=== PATIENT | female | born 1935 | race Caucasian/White ===

== ENCOUNTER 2017-08-25 09:58 | Inpatient (IN) ==
[2017-08-24 17:51] LABS: Basophils # (Auto) 0 K/mcL (0.0-0.3); Basophils % (Auto) 0.5 % (0.0-2.0); Eosinophils # (Auto) 0.1 K/mcL (0.0-0.7); Eosinophils % (Auto) 1.3 % (0.0-7.0); Granulocytes % (Auto) 73.5 % (38.0-78.0); Lymphocytes # (Auto) 1.1 K/mcL (1.5-4.8); Lymphocytes % (Auto) 18.8 % (15.5-49.0); Mean Cell Volume 98.8 fL (80.0-100.0); Mean Corpuscular HGB Conc 33.7 g/dL (31.0-36.0); Mean Corpuscular Hemoglobin 33.3 pg (26.0-34.0); Monocytes # (Auto) 0.4 K/mcL (0.1-0.9); Monocytes % (Auto) 5.9 % (1.0-12.0); Platelet Count 197 K/mcL (140-440); RBC 4.09 M/mcL (4.00-5.20)
[2017-08-24 18:14] LABS: Blood Urea Nitrogen 15 mg/dl (8-23)
[~2017-08-25 09:58] MED LIST: PREGABALIN 75 MG CAPSULE PO SCH; ceFAZolin 1 GM VIAL IV SCH; oxyCODONE 10 MG TAB.ER.12H PO SCH
[2017-08-25 11:07] LABS: Appearance,Urine CLEAR; Bilirubin,Urine NEG (NEG); Color,Urine YELLOW; Glucose,Urine (UA) NEGATIVE (NEG); Leukocyte Esterase,Urine NEG /uL (NEG); Nitrate,Urine NEG (NEG); Protein,Urine NEG (NEG); Specific Gravity,Urine 1.011 (1.000-1.035); Urine Blood NEG mg/dL (<0.03); Urobilinogen,Urine NEG (NEG)
[2017-08-25] MEDS ORDERED: PROPOFOL 200 MG/20 ML VIAL IV ONE (13:30)
[2017-08-25] MEDS ORDERED: TRANEXAMIC ACID 1,000 MG/10 ML VIAL IV ONE (13:30)
[2017-08-25] MEDS ORDERED: LIDOCAINE HCL/PF 100 MG/5 ML SYRINGE IV ONE (13:30)
[2017-08-25] MEDS ORDERED: PHENYLEPHRINE 10 MG/ML VIAL IV ONE (13:30)
[2017-08-25] MEDS ORDERED: HETASTARCH 6% 500 ML BAG IV ONE (13:30)
[2017-08-25] MEDS ORDERED: SUCCINYLCHOLINE 20 MG/ML ML IV ONE (13:30)
[2017-08-25] MEDS ORDERED: ONDANSETRON 4 MG/2 ML VIAL IV ONE (13:30)
[2017-08-25] MEDS ORDERED: fentaNYL 100 MCG/2 ML VIAL IV ONE (13:30)
[2017-08-25] MEDS ORDERED: MIDAZOLAM 2 MG/2 ML VIAL IV ONE (13:30)
[2017-08-25] MEDS ORDERED: ePHEDrine 50 MG/ML AMPUL IV ONE (13:30)
[2017-08-25] MEDS ORDERED: DEXAMETHASONE 10 MG/ML VIAL IV ONE (13:30)
[2017-08-25] MEDS ORDERED: BUPIVACAINE W/EPI 0.5% 50 ML VIAL IJ ONE ×2 (15:22→18:03)
[2017-08-25] MEDS ORDERED: METOCLOPRAMIDE 10 MG/2 ML VIAL IV PRN (15:38)
[2017-08-25] MEDS ORDERED: HYDROmorphone 2 MG/ML SYRINGE IV PRN (15:38)
[2017-08-25] MEDS ORDERED: METHOCARBAMOL 1,000 MG/10 ML VIAL IV PRN (15:38)
[2017-08-25] MEDS ORDERED: diphenhydrAMINE 50 MG/ML VIAL IV PRN (15:38)
[2017-08-25] MEDS ORDERED: IPRATROPIUM/ALBUTEROL 3 ML AMPUL.NEB NEB PRN (15:38)
[2017-08-25] MEDS ORDERED: ePHEDrine 50 MG/ML AMPUL IV PRN (15:38)
[2017-08-25] MEDS ORDERED: ATROPINE SULFATE 0.4 MG/ML VIAL IV PRN (15:38)
[2017-08-25] MEDS ORDERED: METOPROLOL TARTRATE 5 MG/5 ML VIAL IV PRN (15:38)
[2017-08-25] MEDS ORDERED: ONDANSETRON 4 MG/2 ML VIAL IV PRN ×2 (15:38→16:20)
[2017-08-25] MEDS ORDERED: BENZOCAINE/MENTHOL 1 LOZENGE PO PRN ×2 (15:38→16:20)
[2017-08-25] MEDS ORDERED: fentaNYL 100 MCG/2 ML VIAL IV PRN (15:38)
[2017-08-25] MEDS ORDERED: FLUMAZENIL 0.1 MG/ML ML IV PRN (15:38)
[2017-08-25] MEDS ORDERED: NALOXONE HCL 0.4 MG/ML VIAL IV PRN (15:38)
[2017-08-25] MEDS ORDERED: LACTATED RINGERS 1,000 ML IV SCH (15:45)
[2017-08-25] MEDS ORDERED: TRANEXAMIC ACID 1,000 MG/10 ML VIAL IV SCH (16:20)
[2017-08-25] MEDS ORDERED: POLYETHYLENE GLYCOL 3350 17 GM PACKET PO PRN (16:20)
[2017-08-25] MEDS ORDERED: BISACODYL 10 MG SUPP.RECT PR PRN (16:20)
[2017-08-25] MEDS ORDERED: FLEETS ADULT ENEMA PR PRN (16:20)
[2017-08-25] MEDS ORDERED: MAGNESIUM HYDROXIDE 30 ML ORAL.SUSP PO PRN (16:20)
--- NOTE | 2017-08-25 16:20 | Brief Operative Note ---
Date of procedure: 08/25/17 Pre-op diagnosis: R shoulder severe RTC tear arthropathy Post-op diagnosis: same Procedure: R reverse total shoulder arthroplasty Grafts/Implants: Yes (Tournier ) Anesthesia: GETA Findings: severe osteoporosis, Complications: none Surgeon: Brandon Sargent Belt Maker Helper: Tyler Arevalo Estimated blood loss (cc): 150 Specimens Removed/Pathology: none sent Condition: stable Disposition: PACU
[2017-08-25] MEDS ORDERED: FUROSEMIDE 40 MG TABLET PO PRN (16:33)
[2017-08-25] MEDS ORDERED: PIMECROLIMUS 30 GM CREAM..G. TP PRN (16:33)
[2017-08-25] MEDS ORDERED: MOMETASONE 0.1% TOPICAL PRN (16:33)
[2017-08-25] MEDS ORDERED: FLUTICASONE PROPIONATE SPRAY.NAS NS PRN (16:33)
[2017-08-25] MEDS ORDERED: traMADol 50 MG TABLET PO PRN (16:33)
[2017-08-25] MEDS ORDERED: NYSTATIN POWDER BOTTLE 15GM TOPICAL PRN (16:33)
[2017-08-25] MEDS ORDERED: ACETAMINOPHEN 500 MG TABLET PO PRN (16:33)
[2017-08-25] MEDS: ACETAMINOPHEN 700 MG/70 ML BOTTLE IV SCH ×2 (17:03→22:04)
[2017-08-25] MEDS: 0.9 % SODIUM CHLORIDE 1,000 ML IV SCH (18:04)
--- NOTE | 2017-08-25 18:05 | XRay Report ---
CLINICAL INFORMATION: Postop total shoulder prostheses COMPARISON: 08/20/2016 preoperative films FINDINGS: Total shoulder prostheses is anatomically aligned. No osseous abnormalities. Soft tissue swelling seen as expected IMPRESSION: Negative Interpreted and Authenticated by: Hardy Oliver 08/25/17
--- NOTE | 2017-08-25 18:07 | XRay Report ---
CLINICAL INFORMATION: Hypoxia COMPARISON: 07/04/2016 and 04/25/2009 FINDINGS: The heart has increased in size and is now now moderately enlarged. Ectatic thoracic aorta is noted. Pulmonary vessels are mildly distended and there is moderate peribronchial vascular edema throughout both lungs which has progressed. Small infiltrate or atelectasis noted in both medial bases small bilateral pleural effusions noted IMPRESSION: 1. Moderate CHF 2. Mild bibasilar airspace disease, most likely atelectasis, but possible aspiration Interpreted and Authenticated by: Hardy Oliver 08/25/17
--- NOTE | 2017-08-25 18:35 | Internal Medicine Consult Note ---
Medical - CN: HPI - Data of Consult Consult date: 08/25/17 Requesting Physician: Brandon Sargent Primary Care Provider: Celina Dent DO Family Provider: Jose D Weller Jacques - Consult Narrative Reason for consult: Respiratory distress post-op History of present illness: Ms. Puga is a 81 year old F with a history of multiple medical problems including rheumatoid arthritis, right rotator cuff tear, hypertension, hyperlipidemia, hypothyroidism who is now postop after right total shoulder replacement. Dr. Sargent has consulted for evaluation of respiratory distress postoperatively. The PACU, the patient was initially tachypneic with respiratory rate in the 30s, requiring facemask. Subsequently her respiratory rate decreased and she became more comfortable. When I examine the patient, she is being transitioned to nasal cannula. She is somnolent after anesthesia, is able to answer a few questions. She denies any dyspnea. She denies any chest pain. She is complaining of shoulder pain in the right shoulder which was a site of her joint replacement. Intraoperatively, the patient did receive Hespan plus fluids, totaling 1500 mL. I do not see a diagnosis of congestive heart failure, though given her age and history of hypertension she would be at risk for some diastolic dysfunction. Do not see a history of pulmonary disease though her pectus deformity may hinder her respiratory mechanics, in addition to her underlying arthritis. By the end of her stay in recovery, she is saturating well on nasal cannula, breathing at a respiratory rate without use of accessory musculature and her respirations are unlabored. CC: Brandon Sargent ROS unobtainable: due to mental status (Still partially sedated from anesthesia) Medical - CN: PMH Medical history: Hypertension Hyperlipidemia Hypothyroidism Rheumatoid arthritis Restless leg syndrome Severe osteoporosis in the spine Migraines Breast cancer in 2006 TIA Gastroesophageal reflux History of UTIs. Surgical history: Breast surgery Hip fracture repair 2 in 2016 Status post hysterectomy Status post right total shoulder done today. Pertinent family history: Arthritis Social history: Patient has never smoked. She has occasional alcohol. Medical - CN: Meds Home Medications Medication Instructions Recorded Confirmed Type calcium carbonate 600 mg (1,500 1 tab PO QDAY 05/08/16 08/25/17 History mg)-vitamin D3 400 unit tablet cholecalciferol (vitamin D3) 5,000 5,000 unit PO DAILY tab 05/08/16 08/25/17 History unit tablet cranberry fruit concentrate 1 tab PO BID 05/08/16 08/25/17 History fluticasone 50 mcg/actuation nasal 2 spray INTRANASAL DAILYP PRN 05/08/16 History spray,suspension furosemide 40 mg tablet 40 mg PO DAILYP PRN 05/08/16 08/25/17 History garlic 1 tab PO QDAY 05/08/16 08/25/17 History mometasone 0.1 % topical cream 1 applic TOPICAL BIDP PRN g 05/08/16 08/25/17 History nystatin 100,000 unit/gram topical 1 applic TOPICAL BIDP PRN 05/08/16 08/25/17 History powder pimecrolimus 1 % topical cream 1 applic TOPICAL BIDP PRN 05/08/16 08/25/17 History Ascorbic Acid [Vitamin C] 1,000 mg PO DAILY 05/23/16 08/25/17 History Acetaminophen [Acetaminophen Extra 500 mg PO Q6H PRN 07/04/16 08/24/17 History Strength] Calcium Carbonate/Vitamin D3 1 each PO BID #60 tab.chew 07/07/16 08/24/17 Rx [Calcium 500+D Tablet Chew] aspirin 81 mg chewable tablet 81 mg PO QDAY 08/20/16 08/25/17 History famotidine 20 mg tablet 20 mg PO BID 01/27/17 08/25/17 History hydroxychloroquine 200 mg tablet 200 mg PO QDAY #30 tab 07/21/17 08/25/17 Rx temazepam 15 mg capsule 15 mg PO .COMPLEX #60 each 08/10/17 08/25/17 Rx tramadol 50 mg tablet 25 mg PO QID PRN #60 tab 08/19/17 08/25/17 Rx Allergies Allergy/AdvReac Type Severity Reaction Status Date / Time latex AdvReac Intermediate Rash Verified 08/24/17 16:19 Sulfa (Sulfonamide AdvReac Mild Rash Verified 08/24/17 16:19 Antibiotics) Medical - CN: Exam - Constitutional Vitals: Temp Pulse Resp BP Pulse Ox 97.3 F 84 13 135/54 99 08/25/17 17:07 08/25/17 17:07 08/25/17 17:07 08/25/17 17:07 08/25/17 17:07 Exam: Frail appearing, somnolent, laying in a PACU bed. - Head Head exam: Present: atraumatic, normal inspection - Eye Eye exam: Present: normal appearance, PERRL. Absent: conjunctival injection - ENT ENT exam: Present: mucous membranes dry - Neck Neck exam: Present: normal inspection. Absent: tenderness, thyromegaly - Respiratory Additional comments: Diminished breath sounds at the right face with a few rales. - Cardiovascular Cardiovascular exam: Present: normal rate and rhythm. Absent: diastolic murmur , systolic murmur - Expanded Cardiovascular Exam Peripheral pulses: 2+: carotid (L), carotid (R) - GI/Abdominal GI/Abdominal exam: Present: soft, tenderness. Absent: distended, guarding - Extremities Exam Extremities exam: Present: normal capillary refill. Absent: pedal edema Additional comments: Right shoulder in surgical dressing - Neurological Exam Additional comments: Patient is somnolent after anesthesia, arouses and answers a few questions. Cranial nerves II through XII appear intact as best can be tested. Sensation appears intact to touch. - Skin Additional comments: Skin with decreased turgor, thin. - Additional findings Additional findings: Chest exam with pectus carinatum, status post right mastectomy Medical - CN: Result - Labs CBC & Chem 7: 08/24/17 16:55 08/24/17 16:55 Labs: Urine 08/25/17 Range/Units 10:19 Urine Color Yellow Urine Appearance Clear Urine pH 7.0 (5.0-9.0) Ur Specific [place] 1.011 (1.000-1.035) Urine Protein Neg (NEG) mg/dL Urine Glucose (UA) Negative (NEG) mg/dL - EKG Data Prior EKG available for review: no EKG comments: 08/25/17 18:45 Normal sinus rhythm at a rate of 82 with VPCs - Imaging and Cardiology Chest x-ray Status: image reviewed by me Additional comments: IMPRESSION: 1. Moderate CHF 2. Mild bibasilar airspace disease, most likely atelectasis, but possible aspiration Medical - CN: A/P (1) Respiratory distress following surgery Problem details: Possibly related to pain, volume received in surgery; resolving at time of leaving PACU Status: Acute (2) Rotator cuff tear Problem details: s/p right total shoulder Status: Resolved (3) Rheumatoid arthritis Status: Chronic - Narrative A/P Narrative: 81-year-old female with rheumatoid arthritis, osteoporosis, pectus deformity, was having respiratory distress postoperatively in the PACU. Respiratory distress. 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 Generally resolved by the time she is leaving the PACU. Would likely benefit from some gentle diuresis over the next 1-2 days given the findings on her chest radiograph. No history of congestive heart failure, though certainly would be at risk with her age and history of hypertension (though I do not see any antihypertensives on her current med list). Recommendation: -Continue supplemental oxygen -Pulmonary toilet postoperative -We'll commence furosemide in the morning -I do not think an echo would provide extra information at this point -Will continue to follow Gastroesophageal reflux disease. On famotidine at home Recommendation: Continue famotidine for GERD and GI prophylaxis
[2017-08-25] MEDS ORDERED: CRANBERRY EXTRACT PO SCH (21:00)
[2017-08-25] MEDS: ceFAZolin 1 GM VIAL IV SCH (21:01)
[2017-08-25] MEDS: CALCIUM W/VIT D3 500 MG TABLET PO SCH (21:02)
[2017-08-25] MEDS: SENNOSIDES 1 TABLET PO SCH (21:02)
[2017-08-25] MEDS: DOCUSATE SODIUM 100 MG CAPSULE PO SCH (21:02)
[2017-08-25] MEDS: FAMOTIDINE 20 MG TABLET PO SCH (21:02)
[2017-08-25] MEDS: 0.9 % SODIUM CHLORIDE 10 ML SYRINGE IV SCH (21:03)
[2017-08-26] MEDS: HYDROcodone/APAP 5/325MG TABLET PO PRN ×4 (00:48→19:46)
[2017-08-26] MEDS: ACETAMINOPHEN 700 MG/70 ML BOTTLE IV SCH ×2 (03:48→16:10)
[2017-08-26] MEDS: ceFAZolin 1 GM VIAL IV SCH (04:23)
[2017-08-26] MEDS: 0.9 % SODIUM CHLORIDE 10 ML SYRINGE IV SCH ×3 (06:32→21:06)
--- NOTE | 2017-08-26 07:42 | Orthopedic Progress Note ---
Orthopedics - Auxillary Note - Subjective Patient Information: Note initiated : 08/26/17 at 7:40 am Service Date, if different from initiated Date: [] Patient: Haley Puga 81 y/o F admitted on 08/25/17 for Right Reverse Total Shoulder Arthroplasty. Chief Complaint: mild to moderate pain nvi-distal bandages c/d/i Vital Signs Temp Pulse Resp BP Pulse Ox 08/26/17 04:00 98.0 F 101 H 18 107/57 97 08/26/17 00:00 97.9 F 100 H 20 111/66 97 08/25/17 20:45 97 08/25/17 20:00 101 H 16 114/65 97 08/25/17 19:36 96 H 123/70 98 08/25/17 19:25 98 08/25/17 19:06 90 127/70 100 08/25/17 18:36 91 H 132/73 98 08/25/17 18:21 89 129/72 99 08/25/17 18:06 87 132/72 98 08/25/17 17:51 90 128/68 93 08/25/17 17:07 97.3 F 84 13 135/54 99 08/25/17 16:52 97.3 F 84 13 123/46 99 08/25/17 16:37 96.8 F L 99 H 13 107/89 99 08/25/17 12:00 98.0 F 16 125/72 97 Intake and Output 08/25/17 08/26/17 08/26/17 21:59 05:59 13:59 Intake Total 1570 / 1570 370 / 370 Output Total 775 / 775 616 / 616 Balance 795 / 795 -246 / -246 Intake: IV 70 / 70 70 / 70 Oral 300 / 300 Other 1500 / 1500 Output: Drainage 75 / 75 91 / 91 Right Shoulder 75 / 75 91 / 91 Urine Catheter Amount 400 / 400 Void Amount 300 / 300 525 / 525 Other: Weight 109 lb Laboratory Results - last 24 hr 08/25/17 08/26/17 10:19 04:22 Hgb 10.8 L Hct 31.7 L Urine Color Yellow Urine Appearance Clear Urine pH 7.0 Ur Specific [place] 1.011 Urine Protein Neg Urine Glucose (UA) Negative Urine Ketones Neg Urine Occult Blood Neg Urine Nitrate Neg Urine Bilirubin Neg Urine Urobilinogen Neg Ur Leukocyte Esterase Neg Ur Culture Indicated? No s/p R reverse total shoulder arthroplasty-stable mobilize with PT possible SNF placement in 2-3 days
[2017-08-26] MEDS: 0.9 % SODIUM CHLORIDE 1,000 ML IV SCH ×2 (08:03→19:46)
[2017-08-26] MEDS ORDERED: GARLIC PO SCH (09:00)
--- NOTE | 2017-08-26 09:20 | Operative Note ---
DATE OF OPERATION: 08/25/2017 PREOPERATIVE DIAGNOSIS: Severe right shoulder rotator cuff tear arthropathy with severe osteoporosis. POSTOPERATIVE DIAGNOSIS: Severe right shoulder rotator cuff tear arthropathy with severe osteoporosis. PROCEDURE PERFORMED: Right reverse total shoulder arthroplasty using a Tornier size 1 humeral stem with a 36 glenosphere and a standard concentric base tray with polyethylene insert. SURGEON: Brandon Sargent M.D. JUVENILE JUSTICE OFFICER: Warren Arevalo PA-C. ANESTHESIA: General. DRAINS: None. SPECIMENS: None. COMPLICATIONS: None. POSTOPERATIVE CONDITION: Stable. INDICATIONS FOR SURGERY: This is an 81-year-old female who has had severe longstanding shoulder pain and limited motion. Radiographs showed severe rotator cuff tear arthropathy with superior medial escape of the humeral head as well as severe osteoporosis. FINDINGS AT SURGERY: As above. Post implantation showed what appeared to be a reasonably stable total shoulder. PROCEDURE IN DETAIL: The patient had been seen preoperatively. Informed consent had been obtained after discussion of risks and benefits of surgery. Risks including, but not limited to, bleeding, possibly requiring transfusion; infection, possibly requiring implant removal and prolonged IV antibiotics; injury to nerves, blood vessels, and other surrounding structures; anesthetic risks; incomplete or no resolution of symptoms; possible worsening of symptoms; fracture; dislocation; and possibility of needing further revision surgery. She understood these risks and wished to proceed. The correct operative site was marked in preoperative holding, and the patient was taken to the operating room and general anesthesia induced. She was carefully positioned in the beach chair position and pressure points carefully padded. The right shoulder and upper extremity were then carefully prepped and draped in normal sterile fashion, and a time-out was performed verifying patient name, operative site, and plan. Ioban was used to cover all skin surfaces and then a standard deltopectoral incision was made with a scalpel through skin and subcutaneous tissue. Careful blunt dissection was taken down to try and identify cephalic vein. Her muscles were very thin and cephalic vein was difficult to even identify. We carefully bluntly dissected as best we could in the deltopectoral interval and then identified the humerus. This was then released and dislocated. The humeral head was severely deteriorated. We went ahead and cut the humeral head using the cutting guide from Ange, and as expected her osteoporosis was extreme. Her humeral marrow contents were easily just suctioned out with a suction. We trialled gently with the stem trials and then placed a cut protector. We then proceeded to expose the glenoid. She had eroded severely to the point where she was down to the coracoid. Based off our preoperative CT, we knew the real glenoid vault was inferior, so we carefully released capsule to allow us to sublux the humerus posteriorly. We then used a drill guide to place a guide pin and then started to ream. The first position was centered, and this eroded through the bone anteriorly so we moved this posteriorly and angled a little bit more posterior as well and were able to get what we felt was some cortical purchase. We just barely touched the glenoid with the reamer. Again, due to the severe osteoporosis and limited bone available. We then drilled for the central peg and then opened a baseplate with a central screw. She measured a 25. I believe we went with a 39.5 screw just to try and make sure we got some cortical fixation to pull the base plate down. We did pull the base plate down with a screw. However, again the screw purchase was somewhat limited, so we went ahead and then drilled our superior and inferior locking screws. Since there was angle available in those screws, we angled these posteriorly, and we were actually able to get into the spine of the scapula and get some good cortical purchase. We got two excellent locking screws, superior and inferior, and then anteriorly there was no bone, so posteriorly we did place a short nonlocking screw. We then initially decided to use a +3 offset to try and get her lateralized back out to a more normal position, so we went ahead and placed the glenosphere after carefully reaming around the edges to allow full seating. We then went back to the humerus and placed a standard trial with a small offset. We tried to reduce the shoulder and there was no way it was going to reduce, so we downsized the stem and cut more off the humerus. We reattempted reduction and still could not get it. We downsized again, eventually downsized to a size 1 and had cut essentially all of the proximal humerus and were into humeral shaft and still struggled with reduction. I eventually ended up removing the +3 offset glenosphere and placed a standard offset glenosphere, and we were able to finally get reduction, so we went ahead and removed the trial 36 glenosphere with no offset and opened that and then implanted that. We then went to the humerus and opened a size 1 humeral stem. Cement restrictor was placed down the canal and cement was mixed. We brushed and cleaned the canal. We did irrigate with Irrisept, after a minute pulse lavaged copiously, and then cemented. Prior to cementing, we did note there was a crack in the humerus so we did place a cerclage cable under gentle tension to keep this from distracting with cement insertion. We did pressurize the cement and then placed the stem in approximately 20 degrees of retroversion. There was cement that had extruded out the lateral crack which we removed. Once cement had fully hardened, we placed our non-offset baseplate with the smallest standard poly. The shoulder was able to be reduced. The range of motion was somewhat limited just to the tension. We did irrigate with Irrisept. After waiting a minute, we pulse lavaged. She had very thin tissue to close, so we placed a drain out posteriorly, an 1/8-inch. We then used a looped Maxon to run our deltopectoral muscle layer and then 2-0 Monocryl for subcutaneous and kannan for skin. Xeroform and a sterile dressing were applied. The drain was hooked to Constavac suction and then an abductor immobilizer was placed. The patient was awakened, extubated, and transferred to recovery in stable condition. HARMAN:bing Job ID: [id number] Doc ID: [id number] Brandon Sargent MD
[2017-08-26] MEDS ORDERED: FLU VACC QS2017-18 36MOS UP/PF 60 MCG/0.5 ML SYRINGE IM ONE (10:00)
[2017-08-26] MEDS: DOCUSATE SODIUM 100 MG CAPSULE PO SCH ×2 (10:34→21:05)
[2017-08-26] MEDS: CALCIUM W/VIT D3 500 MG TABLET PO SCH ×2 (12:36→21:05)
[2017-08-26] MEDS: FAMOTIDINE 20 MG TABLET PO SCH ×2 (12:37→21:05)
[2017-08-26] MEDS: ASCORBIC ACID 500 MG TABLET PO SCH (12:39)
[2017-08-26] MEDS: HYDROXYCHLOROQUINE 200 MG TABLET PO SCH (12:39)
[2017-08-26] MEDS: VITAMIN D3 5,000 UNIT CAPSULE PO SCH (12:40)
[2017-08-26] MEDS: ASPIRIN 81 MG TAB.CHEW PO SCH (13:17)
--- NOTE | 2017-08-26 13:58 | Internal Med Progress Note ---
Medical - PN: Subj Patient information: Note initiated : 08/26/17 at 1:55 pm Service Date, if different from initiated Date: [] Patient: Haley Puga 81 y/o F admitted on 08/25/17 for Right Reverse Total Shoulder Arthroplasty. Chief Complaint: f/u dyspnea Interval history: August 26: Feels better this morning. Was weaned off of oxygen overnight and earlier this morning. Has been up diuresing several times. Now complaining of some nausea, she thinks it may be related to pain in her shoulder as well as pain medications. Did have some emesis after trying to have breakfast. Does not recall me from my evaluation of her in the PACU yesterday. - Constitutional Vitals: Vital Signs Temp Pulse Resp BP Pulse Ox 98.2 F 97 H 16 130/67 92 08/26/17 13:16 08/26/17 13:16 08/26/17 13:16 08/26/17 13:16 08/26/17 13:16 Period Temp Pulse Resp BP Sys/Jacobson Pulse Ox Last 24 Hr 96.8 F-98.2 F 84-101 13-20 107-135/46-89 92-100 Intake and Output 08/25/17 08/26/17 08/26/17 21:59 05:59 13:59 Intake Total 1570 / 1570 370 / 370 600 / 600 Output Total 775 / 775 616 / 616 100 / 100 Balance 795 / 795 -246 / -246 500 / 500 Weight 109 lb Intake & Output: Intake & Output 08/25/17 08/26/17 08/26/17 21:59 05:59 13:59 Intake Total 1570 / 1570 370 / 370 600 / 600 Output Total 775 / 775 616 / 616 100 / 100 Balance 795 / 795 -246 / -246 500 / 500 Weight 109 lb Intake: IV 70 / 70 70 / 70 Oral 300 / 300 600 / 600 Other 1500 / 1500 Output: Drainage 75 / 75 91 / 91 100 / 100 Right Shoulder 75 / 75 91 / 91 100 / 100 Urine Catheter Amount 400 / 400 Void Amount 300 / 300 525 / 525 Other: Meal Lunch Percent of Meal Consumed 100% Feeding Ability Assist with Tray Set Up # [place] 1 - Additional findings Additional findings: General: Sitting up in bed in no distress Chest: Kyphosis and pectus deformity remaining. Lung sounds are now clear under the right base, no longer diminished and no rales. Left lung is clear. Cardiovascular: Regular, no peripheral edema Abdomen: Soft, nontender Neuro: Alert, oriented 3 speech is normal, mood and affect normal. Medical - PN: Obj Da - Labs CBC & Chem 7: 08/26/17 04:22 08/24/17 16:55 Labs: Abnormal Lab Results 08/26/17 08/24/17 04:22 16:55 Hgb 10.8 L Hct 31.7 L Lymph # (Auto) 1.1 L Meds: Medications Acetaminophen (Tylenol) 500 mg PO Q6HP PRN PRN Reason: Pain Hydrocodone Bitart/Acetaminophen ([place] 5/325mg) 0 tab PO Q4HP PRN PRN Reason: Pain Last Admin: 08/26/17 10:34 Dose: 1 tab Ascorbic Acid (Vitamin C) 1,000 mg PO DAILY [facility] Last Admin: 08/26/17 12:39 Dose: 1,000 mg Aspirin (Aspirin) 81 mg PO QDAY [facility] Last Admin: 08/26/17 13:17 Dose: 81 mg Bisacodyl (Dulcolax) 10 mg [place] Q2-3DAYS PRN PRN Reason: Constipation Calcium/Vitamin D (Calcium W/Vit D3) 500 mg PO BID [facility] Last Admin: 08/26/17 12:36 Dose: 500 mg Docusate Sodium (Colace) 100 mg PO BID [facility] Last Admin: 08/26/17 10:34 Dose: 100 mg Famotidine (Pepcid) 20 mg PO BID [facility] Last Admin: 08/26/17 12:37 Dose: 20 mg Fluticasone Propionate (Flonase) 2 spray NS DAILYP PRN PRN Reason: ALLERGIES Furosemide (Lasix) 0 mg PO DAILYP PRN PRN Reason: Edema Hydroxychloroquine Sulfate (Plaquenil) 200 mg PO QDAY [facility] Last Admin: 08/26/17 12:39 Dose: 200 mg Sodium Chloride (Sodium Chloride 0.9%) 1,000 mls @ 75 mls/hr IV .[id number] [facility] Last Admin: 08/26/17 08:03 Dose: Not Given Magnesium Hydroxide (Milk Of Magnesia) 30 ml PO BIDP PRN PRN Reason: Constipation Morphine Sulfate (Morphine) 0 mg IV Q1HP PRN PRN Reason: Pain Nystatin (Kenalog) 1 dose TOPICAL BIDP PRN PRN Reason: INFECTION Ondansetron HCl (Zofran) 4 mg IV Q4HP PRN PRN Reason: Nausea And Vomiting Last Admin: 08/26/17 08:46 Dose: 4 mg Mometasone 0.1% (Topical Cream) 1 dose TOPICAL BIDP PRN PRN Reason: INFECTION Pimecrolimus (Elidel) 1 gm TP BIDP PRN PRN Reason: INFECTION Polyethylene Glycol (Miralax) 17 gm PO DAILYP PRN PRN Reason: Constipation Senna (Senokot) 2 tab PO HS [facility] Last Admin: 08/25/17 21:02 Dose: 2 tab Sodium Biphosphate/Sodium Phosphate (Fleets Adult) 1 dose [place] Q3-4DAYS PRN PRN Reason: Constipation Sodium Chloride (Saline Flush) 10 ml IV Q8 [facility] Last Admin: 08/26/17 06:32 Dose: Not Given Temazepam (Restoril) 0 mg PO HSP PRN PRN Reason: Insomnia Throat Lozenges (Cepacol) 1 lozenge PO PRN PRN PRN Reason: Sore Throat Tramadol HCl (Ultram) 25 mg PO QIDP PRN PRN Reason: Pain Vitamin D (Vitamin D3) 5,000 unit PO DAILY [facility] Last Admin: 08/26/17 12:40 Dose: 5,000 unit Medical - PN: A/P (1) Respiratory distress following surgery Problem details: Possibly related to pain, volume received in surgery; resolving at time of leaving PACU Status: Resolved Current Visit: Yes (2) Rotator cuff tear Problem details: s/p right total shoulder Status: Resolved Current Visit: Yes (3) Rheumatoid arthritis Status: Chronic Current Visit: No - Narrative A/P Narrative: 81-year-old female with rheumatoid arthritis, osteoporosis, pectus deformity, was having respiratory distress postoperatively in the PACU. Respiratory distress. Resolved. Saturating well on room air, no dyspnea currently. Suspect multifactorial, including volume overload and mechanical issues with chest wall combined with sedation. Has been diuresing this morning , lung exam is improved. Recommendation: Continue with pulmonary toilet, based on repeat exam will not give diuretic at this time. Gastroesophageal reflux disease. On famotidine at home Recommendation: Continue famotidine History of hypertension. Not currently on antihypertensives. History of hypothyroidism, on [id number] supplement, apparently normal TSH at last check. Medical - PN: Qual - VTE Deep Vein Thrombosis/Pulmonary Embolism Present on Admission: No
[2017-08-26] MEDS: TEMAZEPAM 15 MG CAPSULE PO PRN (21:05)
[2017-08-26] MEDS: SENNOSIDES 1 TABLET PO SCH (21:05)
[2017-08-27] MEDS: HYDROcodone/APAP 5/325MG TABLET PO PRN ×5 (00:02→21:08)
[2017-08-27] MEDS: 0.9 % SODIUM CHLORIDE 10 ML SYRINGE IV SCH ×3 (05:28→23:56)
--- NOTE | 2017-08-27 07:44 | Orthopedic Progress Note ---
Orthopedics - Auxillary Note - Subjective Patient Information: Note initiated : 08/27/17 at 7:42 am Service Date, if different from initiated Date: [] Patient: Haley Puga 81 y/o F admitted on 08/25/17 for Right Reverse Total Shoulder Arthroplasty. Chief Complaint: pain is improving. bandages c/d/i nvi-distal Vital Signs Temp Pulse Pulse Pulse Resp BP Pulse Ox 08/27/17 07:05 98.5 F 20 129/64 92 08/27/17 03:33 98.8 F 91 H 20 119/60 92 08/27/17 00:00 97.6 F 98 H 18 124/60 93 08/26/17 20:00 98.1 F 91 H 16 115/53 93 08/26/17 16:18 98.8 F 86 17 115/65 89 L 08/26/17 13:16 98.2 F 97 H 16 130/67 92 08/26/17 09:00 97.8 F 85 14 114/64 94 08/26/17 08:00 101 H 85 14 Intake and Output 08/26/17 08/27/17 08/27/17 21:59 05:59 13:59 Intake Total 650 / 650 Output Total 130 / 130 665 / 665 Balance -130 / -130 -15 / -15 Intake: Oral 650 / 650 Output: Drainage 130 / 130 40 / 40 Right Shoulder 130 / 130 40 / 40 Void Amount 625 / 625 Other: Meal Yogurt Percent of Meal Consumed 100% Feeding Ability Independent # Voids 1 Weight 111 lb 8 oz Laboratory Results - last 24 hr 08/27/17 04:20 Hgb 9.7 L Hct 29.1 L s/p R Reverse total shoulder arthroplasty-stable mobilize with PT tentative discharge to SNF tomorrow for rehab given that she will need to remain non-weight bearing on her R (dominant) arm and has no help at home.
[2017-08-27] MEDS: 0.9 % SODIUM CHLORIDE 1,000 ML IV SCH ×2 (08:23→23:56)
[2017-08-27] MEDS: FAMOTIDINE 20 MG TABLET PO SCH ×2 (08:23→20:13)
[2017-08-27] MEDS: VITAMIN D3 5,000 UNIT CAPSULE PO SCH (08:23)
[2017-08-27] MEDS: ASPIRIN 81 MG TAB.CHEW PO SCH (08:23)
[2017-08-27] MEDS: DOCUSATE SODIUM 100 MG CAPSULE PO SCH ×2 (08:23→20:13)
[2017-08-27] MEDS: CALCIUM W/VIT D3 500 MG TABLET PO SCH ×2 (08:23→20:13)
[2017-08-27] MEDS: HYDROXYCHLOROQUINE 200 MG TABLET PO SCH (08:23)
[2017-08-27] MEDS: ASCORBIC ACID 500 MG TABLET PO SCH (08:29)
--- NOTE | 2017-08-27 09:57 | Internal Med Progress Note ---
Medical - PN: Subj Patient information: Note initiated : 08/27/17 at 9:54 am Service Date, if different from initiated Date: [] Patient: Haley Puga 81 y/o F admitted on 08/25/17 for Right Reverse Total Shoulder Arthroplasty. Chief Complaint: f/u respiratory distress Interval history: August 26: Feels better this morning. Was weaned off of oxygen overnight and earlier this morning. Has been up diuresing several times. Now complaining of some nausea, she thinks it may be related to pain in her shoulder as well as pain medications. Did have some emesis after trying to have breakfast. Does not recall me from my evaluation of her in the PACU yesterday. August 27: Continues to improve, nausea resolved, taking good PO. No dyspnea or chest pain. Remains off O2 - Constitutional Vitals: Vital Signs Temp Pulse Resp BP Pulse Ox 98.5 F 91 H 20 129/64 92 08/27/17 07:05 08/27/17 03:33 08/27/17 07:05 08/27/17 07:05 08/27/17 07:05 Period Temp Pulse Resp BP Sys/Jacobson Pulse Ox Last 24 Hr 97.6 F-98.8 F 86-98 16-20 115-130/53-67 89-93 Intake and Output 08/26/17 08/27/17 08/27/17 21:59 05:59 13:59 Intake Total 650 / 650 200 / 200 Output Total 130 / 130 665 / 665 550 / 550 Balance -130 / -130 -15 / -15 -350 / -350 Weight 111 lb 8 oz Intake & Output: Intake & Output 08/26/17 08/27/17 08/27/17 21:59 05:59 13:59 Intake Total 650 / 650 200 / 200 Output Total 130 / 130 665 / 665 550 / 550 Balance -130 / -130 -15 / -15 -350 / -350 Weight 111 lb 8 oz Intake: Oral 650 / 650 200 / 200 Output: Drainage 130 / 130 40 / 40 Right Shoulder 130 / 130 40 / 40 Void Amount 625 / 625 550 / 550 Other: Meal Yogurt Breakfast Percent of Meal Consumed 100% 50% Feeding Ability Independent Independent # Voids 1 1 General appearance: no acute distress - Respiratory Respiratory exam: Present: normal respiratory exam, CTAB. Absent: respiratory distress, rhonchi, wheezes - Cardiovascular Cardiovascular exam: Present: normal rate and rhythm - GI/Abdominal GI/Abdominal exam: Present: normal bowel sounds, soft - Extremities Exam Extremities exam: Absent: pedal edema - Neurological Exam Neurological exam: Present: alert, oriented X3 Medical - PN: Obj Da - Labs CBC & Chem 7: 08/27/17 04:20 08/24/17 16:55 Labs: Abnormal Lab Results 08/27/17 08/26/17 08/24/17 04:20 04:22 16:55 Hgb 9.7 L 10.8 L Hct 29.1 L 31.7 L Lymph # (Auto) 1.1 L Meds: Medications Acetaminophen (Tylenol) 500 mg PO Q6HP PRN PRN Reason: Pain Hydrocodone Bitart/Acetaminophen ([place] 5/325mg) 0 tab PO Q4HP PRN PRN Reason: Pain Last Admin: 08/27/17 08:29 Dose: 1 tab Ascorbic Acid (Vitamin C) 1,[address] [facility] Last Admin: 08/27/17 08:29 Dose: 1,000 mg Aspirin (Aspirin) [address] [facility] Last Admin: 08/27/17 08:23 Dose: 81 mg Bisacodyl (Dulcolax) 10 mg IA Q2-3DAYS PRN PRN Reason: Constipation Calcium/Vitamin D (Calcium W/Vit D3) [address] [facility] Last Admin: 08/27/17 08:23 Dose: 500 mg Docusate Sodium (Colace) [address] [facility] Last Admin: 08/27/17 08:23 Dose: 100 mg Famotidine (Pepcid) [address] [facility] Last Admin: 08/27/17 08:23 Dose: 20 mg Fluticasone Propionate (Flonase) 2 spray NS DAILYP PRN PRN Reason: ALLERGIES Furosemide (Lasix) 0 mg PO DAILYP PRN PRN Reason: Edema Hydroxychloroquine Sulfate (Plaquenil) [address] [facility] Last Admin: 08/27/17 08:23 Dose: 200 mg Sodium Chloride (Sodium Chloride 0.9%) 1,000 mls @ 75 mls/hr IV .[id number] [facility] Last Admin: 08/27/17 08:23 Dose: Not Given Magnesium Hydroxide (Milk Of Magnesia) 30 ml PO BIDP PRN PRN Reason: Constipation Morphine Sulfate (Morphine) 0 mg IV Q1HP PRN PRN Reason: Pain Nystatin (Kenalog) 1 dose TOPICAL BIDP PRN PRN Reason: INFECTION Ondansetron HCl (Zofran) 4 mg IV Q4HP PRN PRN Reason: Nausea And Vomiting Last Admin: 08/26/17 08:46 Dose: 4 mg Mometasone 0.1% (Topical Cream) 1 dose TOPICAL BIDP PRN PRN Reason: INFECTION Pimecrolimus (Elidel) 1 gm TP BIDP PRN PRN Reason: INFECTION Polyethylene Glycol (Miralax) 17 gm PO DAILYP PRN PRN Reason: Constipation Senna (Senokot) [address] [facility] Last Admin: 08/26/17 21:05 Dose: 2 tab Sodium Biphosphate/Sodium Phosphate (Fleets Adult) 1 dose IA Q3-4DAYS PRN PRN Reason: Constipation Sodium Chloride (Saline Flush) [address] [facility] Last Admin: 08/27/17 05:28 Dose: Not Given Temazepam (Restoril) 0 mg PO HSP PRN PRN Reason: Insomnia Last Admin: 08/26/17 21:05 Dose: 15 mg Throat Lozenges (Cepacol) 1 lozenge PO PRN PRN PRN Reason: Sore Throat Tramadol HCl (Ultram) 25 mg PO QIDP PRN PRN Reason: Pain Vitamin D (Vitamin D3) 5,[address] [facility] Last Admin: 08/27/17 08:23 Dose: 5,000 unit Medical - PN: A/P (1) Respiratory distress following surgery Problem details: Possibly related to pain, volume received in surgery; resolving at time of leaving PACU Status: Resolved Current Visit: Yes (2) Rotator cuff tear Problem details: s/p right total shoulder Status: Resolved Current Visit: Yes (3) Rheumatoid arthritis Status: Chronic Current Visit: No - Narrative A/P Narrative: 81-year-old female with rheumatoid arthritis, osteoporosis, pectus deformity, was having respiratory distress postoperatively in the PACU. Respiratory distress. Resolved. Stable on room air. Suspect episode in PACU multifactorial, including volume overload and mechanical issues with chest wall combined with sedation. Has been diuresing this morning, lung exam is improved. Recommendation: Continue with pulmonary toilet. Gastroesophageal reflux disease. On famotidine at home Recommendation: Continue famotidine History of hypertension. Not currently on antihypertensives. History of hypothyroidism, on [id number] supplement, apparently normal TSH at last check. Plans for SNF tomorrow. Medicine will sign off, no further recs than above. Call with questions. Dr. Corley assumes service this afternoon, if needed. Medical - PN: Qual - VTE Deep Vein Thrombosis/Pulmonary Embolism Present on Admission: No
[2017-08-27] MEDS ORDERED: FLU VACC QS2017-18 36MOS UP/PF 60 MCG/0.5 ML SYRINGE IM ONE (10:00)
--- NOTE | 2017-08-27 15:39 | Discharge Summary ---
Providers - Providers Patient information: Note initiated : 08/27/17 at 3:37 pm Service Date, if different from initiated Date: [] Patient: Haley Puga 81 y/o F admitted on 08/25/17 for Right Reverse Total Shoulder Arthroplasty. Chief Complaint: [] Date of admission: 08/25/17 Discharge date: 08/28/17 Attending physician: [facility] Hospital[facility] Hospital course: Uneventful, pain controlled. Discharge diagnosis: s/p R reverse total shoulder arthroplasty Reason for admission: R shoulder pain Procedures: Right reverse total shoulder arthroplasty Exam - Exam Weight bearing status: none Ortho Discharge - TSA - Patient Instructions Diet: Regular Diet Activity: non weight bearing Total Shoulder Protocol: Leave immobilizer in place except for bathing and ROM. Abduction pillow. Continue to wear sling until seen by physician. [place]man Pendulum : These exercises use momentum produced by your body to move your shoulder joint. Bend your knees and shift your weight to your front leg, then back, allowing your arm to swing in the same directions. Using the same technique, alternately shift your weight between your right and left legs, allowing your arm to swing from side to side. These exercises are also performed in counterclockwise and clockwise circular motions. Typically these exercises are performed several times per day, for a set number repetitions or minutes, such as 20 times in a row or 5 minutes at a time. Dressing Care: Aquacel Ag - leave on for 5 days Patient Education: Shoulder Arthroplasty (DC) Additional Instructions: Discharge Instructions: Do the exercises at home that physical therapy gave you. Wear comfortable clothing for your physical therapy. No weight bearing with right arm/hand. Keep arm in the immobilizer except for showering and exercises. You have the Aquacel Ag dressing, leave in place for 7 days then remove. If dressing becomes soiled (turns black), remove and use gauze 4x4 dressing and silvasorb ointment and change daily. Keep incision clean and dry. You may start showering on post op day #2. To avoid constipation while taking any narcotic pain medication, take an over the counter stool softener/laxative. Use ice packs as directed, on for 20 minutes at a time throughout the day. This and elevation will help with pain and swelling. Call your physician for fevers above 100.5 or pain not controlled by medication. Your prescriptions are with your discharge information. Some medications were electronically transmitted to your pharmacy of choice. - Follow Up Plan Follow Up Appointments: Tyler Arevalo PA-C [Physician Aquatic Habitat Biologist] - 09/10/17 1:10 pm Disposition: Xfer SNF Prognosis: Fair Rehab Potential: Fair Pending Studies Resuscitation Status Full Code Diet Regular Diet Start Nena Oct 19 Lunch Hydrocodone Bitart/Acetaminophen ([place] 5/325mg) 0 tab PO Q4HP PRN PRN Reason: Pain Last Admin: 08/27/17 08:29 Dose: 1 tab Admin: 08/27/17 04:38 Dose: 1 tab Admin: 08/27/17 00:02 Dose: 1 tab Admin: 08/26/17 19:46 Dose: 1 tab Admin: 08/26/17 10:34 Dose: 1 tab Admin: 08/26/17 04:29 Dose: 1 tab Admin: 08/26/17 00:48 Dose: 1 tab Ascorbic Acid (Vitamin C) 1,000 mg PO DAILY [facility] Last Admin: 08/27/17 08:29 Dose: 1,000 mg Admin: 08/26/17 12:39 Dose: 1,000 mg Aspirin (Aspirin) 81 mg PO QDAY [facility] Last Admin: 08/27/17 08:23 Dose: 81 mg Admin: 08/26/17 13:17 Dose: 81 mg Calcium/Vitamin D (Calcium W/Vit D3) 500 mg PO BID [facility] Last Admin: 08/27/17 08:23 Dose: 500 mg Admin: 08/26/17 21:05 Dose: 500 mg Admin: 08/26/17 12:36 Dose: 500 mg Admin: 08/25/17 21:02 Dose: 500 mg Docusate Sodium (Colace) 100 mg PO BID [facility] Last Admin: 08/27/17 08:23 Dose: 100 mg Admin: 08/26/17 21:05 Dose: 100 mg Admin: 08/26/17 10:34 Dose: 100 mg Admin: 08/25/17 21:02 Dose: 100 mg Famotidine (Pepcid) 20 mg PO BID [facility] Last Admin: 08/27/17 08:23 Dose: 20 mg Admin: 08/26/17 21:05 Dose: 20 mg Admin: 08/26/17 12:37 Dose: 20 mg Admin: 08/25/17 21:02 Dose: 20 mg Hydroxychloroquine Sulfate (Plaquenil) 200 mg PO QDAY [facility] Last Admin: 08/27/17 08:23 Dose: 200 mg Admin: 08/26/17 12:39 Dose: 200 mg Sodium Chloride (Sodium Chloride 0.9%) 1,000 mls @ 75 mls/hr IV .[id number] [facility] Last Admin: 08/27/17 08:23 Dose: Admin: 08/26/17 19:46 Dose: Admin: 08/26/17 08:03 Dose: Admin: 08/25/17 18:04 Dose: 75 mls/hr Ondansetron HCl (Zofran) 4 mg IV Q4HP PRN PRN Reason: Nausea And Vomiting Last Admin: 08/26/17 08:46 Dose: 4 mg Senna (Senokot) 2 tab PO HS [facility] Last Admin: 08/26/17 21:05 Dose: 2 tab Admin: 08/25/17 21:02 Dose: 2 tab Sodium Chloride (Saline Flush) 10 ml IV Q8 [facility] Last Admin: 08/27/17 05:28 Dose: Admin: 08/26/17 21:06 Dose: 10 ml Admin: 08/26/17 16:27 Dose: 10 ml Admin: 08/26/17 06:32 Dose: Not Given Admin: 08/25/17 21:03 Dose: Not Given Temazepam (Restoril) 0 mg PO HSP PRN PRN Reason: Insomnia Last Admin: 08/26/17 21:05 Dose: 15 mg Vitamin D (Vitamin D3) 5,000 unit PO DAILY [facility] Last Admin: 08/27/17 08:23 Dose: 5,000 unit Admin: 08/26/17 12:40 Dose: 5,000 unit Shift Summary 08/27/17 03:57 Shift Summary by Haley Durant&Kevin4. VSS on RA. Dressing to right shoulder is CDI; immobilizer in place. 40 ml sanguineous drainage from GIOVANNI this shift. Up with 1 assist. 18 gauge to LFA infiltrated. Patient refused new IV placement. Patient would like a yogurt with her pain medication to avoid N/V. Plan is for patient to have a 3 day stay in hospital and then d/c to [facility] for rehabilitation. Initialized on 08/27/17 03:57 - END OF NOTE
[2017-08-27] MEDS: SENNOSIDES 1 TABLET PO SCH (20:13)
[2017-08-27] MEDS: TEMAZEPAM 15 MG CAPSULE PO PRN (21:56)
[2017-08-28] MEDS: HYDROcodone/APAP 5/325MG TABLET PO PRN ×3 (00:45→09:24)
[2017-08-28] MEDS: 0.9 % SODIUM CHLORIDE 10 ML SYRINGE IV SCH (05:41)
--- NOTE | 2017-08-28 07:44 | Orthopedic Progress Note ---
Orthopedics - Auxillary Note - Subjective Patient Information: Note initiated : 08/28/17 at 7:43 am Service Date, if different from initiated Date: [] Patient: Haley Puga 81 y/o F admitted on 08/25/17 for Right Reverse Total Shoulder Arthroplasty. Chief Complaint: no c/o. bandages c/d/i nvi-distal Vital Signs Temp Pulse Resp BP Pulse Ox 08/28/17 03:35 98.0 F 84 16 127/65 93 08/28/17 00:00 97.6 F 85 16 108/59 93 08/27/17 20:00 98.1 F 104 H 18 117/68 93 08/27/17 16:00 98.5 F 20 135/68 93 08/27/17 11:44 98.5 F 20 147/69 91 Intake and Output 08/27/17 08/28/17 08/28/17 21:59 05:59 13:59 Intake Total 240 / 240 300 / 300 Output Total 1500 / 1500 800 / 800 Balance -1260 / -1260 -500 / -500 Intake: Oral 240 / 240 300 / 300 Output: Urine Catheter Amount 300 / 300 Void Amount 1500 / 1500 500 / 500 Other: Meal yogurt and piece of cake Percent of Meal Consumed 50% Feeding Ability Assist with Tray Set Up Weight 115 lb Laboratory Results - last 24 hr 08/28/17 04:15 Hgb 9.9 L Hct 29.8 L s/p R reverse total shoulder arthroplasty-stable mobilize with PT discharge to SNF today
[2017-08-28] MEDS: HYDROXYCHLOROQUINE 200 MG TABLET PO SCH (09:24)
[2017-08-28] MEDS: FAMOTIDINE 20 MG TABLET PO SCH (09:24)
[2017-08-28] MEDS: ASPIRIN 81 MG TAB.CHEW PO SCH (09:24)
[2017-08-28] MEDS: VITAMIN D3 5,000 UNIT CAPSULE PO SCH (09:24)
[2017-08-28] MEDS: DOCUSATE SODIUM 100 MG CAPSULE PO SCH (09:24)
[2017-08-28] MEDS: CALCIUM W/VIT D3 500 MG TABLET PO SCH ×2 (09:24→09:49)
[2017-08-28] MEDS: ASCORBIC ACID 500 MG TABLET PO SCH ×2 (09:24→09:49)
[2017-08-28] MEDS: 0.9 % SODIUM CHLORIDE 1,000 ML IV SCH (10:30)
== END 2017-08-28 11:30 | DRG 483 ==
LOC: MEDSUR 09:58
PROVIDERS: ADMIT Orthopaedic Surgery; ATTEND Orthopaedic Surgery

== ENCOUNTER 2018-08-05 18:49 | Inpatient (IN) ==
[2018-08-05] MEDS ORDERED: ONDANSETRON 4 MG/2 ML VIAL IV ONE ×2 (19:37→20:24)
[2018-08-05] MEDS: HYDROmorphone 2 MG/ML VIAL IV PRN ×2 (19:55→20:06)
--- NOTE | 2018-08-05 20:03 | Emergency Department Note ---
Fall HPI - General Chief Complaint: Fall Stated Complaint: fall, sob, back pain Time Seen by Provider: 08/05/18 18:54 Source: patient Mode of arrival: ambulatory - History of Present Illness HPI Narrative: 82-year-old female presents with severe back pain. About 3 hours prior to her arrival she tripped at home and fell. Landed on her back. Is complaining of back pain from the top of her neck all the way down to L2 area. States is been worsening over the last couple hours and now she is getting short of breath so she decided to call the ambulance and have them bring her here. She is from [place]. She denies chest pain or abdominal pain. States very limited range of motion to the neck and back related to pain. She did not hit her head. No loss of consciousness. No headache. Denies any extremity pain. No treatments prior to arrival - Related Data Home Medications Medication Instructions Recorded Confirmed calcium carbonate 600 mg (1,500 1 tab PO QDAY 05/08/16 04/21/18 mg)-vitamin D3 400 unit tablet cholecalciferol (vitamin D3) 5,000 5,000 unit PO DAILY tab 05/08/16 04/21/18 unit tablet cranberry fruit concentrate 1 tab PO BID 05/08/16 04/21/18 fluticasone 50 mcg/actuation nasal 2 spray INTRANASAL DAILYP PRN 05/08/16 spray,suspension furosemide 40 mg tablet 40 mg PO DAILYP PRN 05/08/16 04/21/18 garlic 1 tab PO QDAY 05/08/16 04/21/18 mometasone 0.1 % topical cream 1 applic TOPICAL BIDP PRN g 05/08/16 04/21/18 nystatin 100,000 unit/gram topical 1 applic TOPICAL BIDP PRN 05/08/16 04/21/18 powder pimecrolimus 1 % topical cream 1 applic TOPICAL BIDP PRN 05/08/16 04/21/18 Ascorbic Acid [Vitamin C] 1,000 mg PO DAILY 05/23/16 04/21/18 Acetaminophen [Acetaminophen Extra 500 mg PO Q6H PRN 07/04/16 04/21/18 Strength] aspirin 81 mg chewable tablet 81 mg PO QDAY 08/20/16 04/21/18 Previous Rx's Medication Instructions Recorded Calcium Carbonate/Vitamin D3 1 each PO BID #60 tab.chew 07/07/16 [Calcium 500+D Tablet Chew] famotidine 20 mg tablet 20 mg PO BID #60 tab 04/21/18 pseudoephedrine ER 120 mg 120 mg PO Q12H #30 tab 04/21/18 tablet,extended release trazodone 50 mg tablet 50 mg PO QHS PRN #60 tab 06/01/18 Ciprofloxacin HCl [Cipro] 500 mg PO BID #14 tab 06/09/18 tramadol 50 mg tablet 25 mg PO QID PRN #60 tab 07/06/18 hydroxychloroquine 200 mg tablet 200 mg PO QDAY #30 tab 07/21/18 hydrocodone 7.5 mg-acetaminophen 1 tab PO BID PRN #60 tab 07/27/18 325 mg tablet Allergies Allergy/AdvReac Type Severity Reaction Status Date / Time latex AdvReac Intermediate Rash Verified 04/21/18 11:24 Sulfa (Sulfonamide AdvReac Mild Rash Verified 04/21/18 11:24 Antibiotics) Review of Systems All systems ED: reviewed and negative except as stated. Fall PMH - Past Medical History PMF Narrative: Medical History (Last Reviewed 04/21/18 @ 11:50 by Celina Dent DO) Geriatric health maintenance (Chronic) Right shoulder pain (Chronic) Encounter for long-term (current) use of high-risk medication (Chronic) Erosive osteoarthritis (Chronic) TIA (transient ischemic attack) (Chronic) Migraines (Chronic) Insomnia (Chronic) Tachycardia (Chronic) Breast cancer (Chronic ~2006) Epistaxis (Chronic) Acid reflux (Chronic) Abrasion (Acute) Fracture of hip (Acute) Complicated UTI (urinary tract infection) (Acute) Closed right hip fracture (Acute) Long-term use of immunosuppressant medication (Acute) Osteoarthritis (Acute) Arthralgia of multiple joints (Acute) Sprain of other ligament of left ankle, initial encounter (Chronic) Itching (Chronic) Hyperlipidemia (Chronic) Hypertension (Chronic) Leg edema (Chronic) Hypothyroid (Chronic) DDD (degenerative disc disease) (Chronic) Osteoporosis (Chronic) Restless leg syndrome (Chronic) Rheumatoid arthritis (Chronic) Past Surgical History (Last Reviewed 04/21/18 @ 11:50 by Celina Dent DO) H/O breast surgery (Chronic) History of colonoscopy with polypectomy (Chronic 04/27/17) History of hip surgery (Chronic ~2016) Hx of hysterectomy (Chronic) Medical history: Reports: arthritis, DM, hypertension, osteoporosis PURE CULTURE OPERATOR history: Reports: non-contributory - Social History smoking status: Never smoker Alcohol use: Reports: None Drug use: Reports: none Physical Exam Limitations: no limitations General appearance: alert, in no apparent distress Head: atraumatic, normocephalic, normal inspection Eye: Present: normal appearance. Absent: conjunctival injection ENT: mucous membranes moist Neck: Absent: full ROM (Decreased range of motion related to pain and diffuse tenderness throughout neck with palpation. No step-off or deformity) Chest: Present: normal inspection, symmetric chest wall rise Respiratory: Present: normal lung sounds bilaterally, other (Lung sounds diminished in the bases bilaterally other clear). Absent: respiratory distress , stridor Cardiovascular: Present: regular rate Extremities: Present: normal inspection. Absent: tenderness Back: Absent: full ROM (Limited range of motion to cervical spine, thoracic spine and lumbar spine related to pain. She also has a severe curvature of the spine which is chronic. There is no step-off to order deformity but she has significant tenderness from C5 through T6 with palpation) Neurological: Present: alert, oriented X3. Absent: motor sensory deficit Psychiatric: Present: normal affect, normal mood Skin: Present: warm, dry, intact, normal color Course Course Narrative: I did speak with Dr. Corley at 810 regarding possible admit of this patient for pain control. He would like us to speak with neurosurgery or spine surgery first. At [address] did speak [address] Gallagher. He states treatment for this patient is bed rest, pain medication, and a back brace and follow-up with the pain clinic if needed since there is no intrusion in the spinal canal and no neuro deficits. He suggested medical management/admit by hospitalist for pain control initially. not a surgical candidate at this time. Vital Signs Temperature 100.0 F H 08/05/18 18:50 Pulse Rate 84 08/05/18 18:50 Respiratory Rate 24 H 08/05/18 18:50 Blood Pressure 174/67 08/05/18 18:50 Pulse Oximetry (%) 88 L 08/05/18 18:50 Temperature 100.0 F H 08/05/18 18:50 Pulse Rate 86 08/05/18 19:09 Respiratory Rate 18 08/05/18 19:15 Blood Pressure 159/68 08/05/18 19:01 Pulse Oximetry (%) 95 08/05/18 19:09 Fall - Radiology Data Radiology results reviewed: Yes I reviewed the patient's radiology results. Disposition Pt seen by SAFETY PIN ASSEMBLING MACHINE OPERATOR/PA only: Yes Clinical Impression: Compression fx, thoracic spine, Pain, Fall Disposition: Xfer As Inpt ([facility]) Condition: Fair Referrals: Celina Dent DO [Primary Care Provider] - Antonio Vilchis [Physician] - Time of Disposition: 20:24
[2018-08-05] MEDS ORDERED: ONDANSETRON 4 MG/2 ML VIAL ONE (20:31)
[2018-08-05 21:12] LABS: Basophils # (Auto) 0 K/mcL (0.0-0.3); Basophils % (Auto) 0 % (0.0-2.0); Eosinophils # (Auto) 0 K/mcL (0.0-0.7); Eosinophils % (Auto) 0.2 % (0.0-7.0); Granulocytes % (Auto) 89.2 % (38.0-78.0); Lymphocytes # (Auto) 1.1 K/mcL (1.5-4.8); Lymphocytes % (Auto) 7.3 % (15.5-49.0); Mean Cell Volume 99.3 fL (80.0-100.0); Mean Corpuscular HGB Conc 33.6 g/dL (31.0-36.0); Mean Corpuscular Hemoglobin 33.3 pg (26.0-34.0); Monocytes # (Auto) 0.5 K/mcL (0.1-0.9); Monocytes % (Auto) 3.3 % (1.0-12.0); Platelet Count 194 K/mcL (140-440); RBC 3.84 M/mcL (4.00-5.20); Red Cell Distribution Width 12.6 % (11.5-14.5)
--- NOTE | 2018-08-05 21:42 | Internal Med History&Physical ---
Medical - H&P: HPI Patient information: Note initiated : 08/05/18 at 9:39 pm Service Date, if different from initiated Date: [] Patient: Haley Puga 82 y/o F admitted on for fall, sob, back pain. Chief Complaint: [] History of present illness: Ms. Puga is a 82 year old F who lives with her is quite frail presents to the emergency room after a fall. The patient was putting in some books on the [employer] this afternoon with her when she turned around and fell down. She denies injuring her head. She notes she just fell down and her back started hurting. She tried to rest for some time but the pain progressively quite severe. She eventually was unable to bear the pain and therefore called EMS to come to the hospital. The patient and her are recovering from a cold symptom, for the last week or so patient has been having cough. Patient denies any fever or chills. She denies any chest pain dizziness palpitations changes in vision before she fell down. Her helped her up. In the emergency room the patient has a low-grade temperature of 100 F, heart rate 84, blood pressure stable saturating 94% on 2 L of oxygen. Labs show leukocytosis, chemistry was pending. The patient had a CT chest abdomen and pelvis and a CT spine done. Official report will be dictated tomorrow I got the preliminary read from the radiologist who notes that the patient has severe compression fractures new in T3 and T5, new on old on T4. The patient also has old fractures and C7 T1-T2 and L3. There is no hematoma and no impingement on the cord. The patient has no other intra-abdominal pathology. The patient has bilateral atelectasis and possible pneumonia on the right side. Significant mucus plugging bilaterally. Given the patient has leukocytosis low-grade temperature possible pneumonia, increased oxygen requirements as well as new vertebral fractures which would make it difficult for the patient to be discharged safely back home patient is being admitted to the hospital for further management. ER contacted Dr Abreu a spine surgeon reviewed the CT scan, and noted that the patient does not warrant operative intervention and advised medical management. He would see the patient in the clinic as outpatient. The patient wishes to be full code for now, her will make a decision about withdrawal of support incase she were to go in a vegetative state All systems: reviewed and no additional remarkable complaints except as stated ( as per HPI rest negative.) Medical - H&P: H Medical history: Medical History (Last Reviewed 04/21/18 @ 11:50 by Celina Dent DO) Geriatric health maintenance (Chronic) Right shoulder pain (Chronic) Encounter for long-term (current) use of high-risk medication (Chronic) Erosive osteoarthritis (Chronic) TIA (transient ischemic attack) (Chronic) Migraines (Chronic) Insomnia (Chronic) Tachycardia (Chronic) Breast cancer (Chronic ~2006) Epistaxis (Chronic) Acid reflux (Chronic) Abrasion (Acute) Fracture of hip (Acute) Complicated UTI (urinary tract infection) (Acute) Closed right hip fracture (Acute) Long-term use of immunosuppressant medication (Acute) Osteoarthritis (Acute) Arthralgia of multiple joints (Acute) Sprain of other ligament of left ankle, initial encounter (Chronic) Itching (Chronic) Hyperlipidemia (Chronic) Hypertension (Chronic) Leg edema (Chronic) Hypothyroid (Chronic) DDD (degenerative disc disease) (Chronic) Osteoporosis (Chronic) Restless leg syndrome (Chronic) Rheumatoid arthritis (Chronic) Surgical history: Past Surgical History (Last Reviewed 04/21/18 @ 11:50 by Celina Dent DO) H/O breast surgery (Chronic) History of colonoscopy with polypectomy (Chronic 03/05/17) History of hip surgery (Chronic ~2015) Hx of hysterectomy (Chronic) Pertinent family history: Family History (Last Reviewed 04/21/18 @ 11:50 by Celina Dent DO) Father Arthritis Daughter Cancer Diabetes Medical - H&P: Meds Home Medications Medication Instructions Recorded Confirmed Type calcium carbonate 600 mg (1,500 1 tab PO QDAY 05/08/16 04/21/18 History mg)-vitamin D3 400 unit tablet cholecalciferol (vitamin D3) 5,000 5,000 unit PO DAILY tab 05/08/16 04/21/18 History unit tablet cranberry fruit concentrate 1 tab PO BID 05/08/16 04/21/18 History fluticasone 50 mcg/actuation nasal 2 spray INTRANASAL DAILYP PRN 05/08/16 History spray,suspension furosemide 40 mg tablet 40 mg PO DAILYP PRN 05/08/16 04/21/18 History garlic 1 tab PO QDAY 05/08/16 04/21/18 History mometasone 0.1 % topical cream 1 applic TOPICAL BIDP PRN g 05/08/16 04/21/18 History nystatin 100,000 unit/gram topical 1 applic TOPICAL BIDP PRN 05/08/16 04/21/18 History powder pimecrolimus 1 % topical cream 1 applic TOPICAL BIDP PRN 05/08/16 04/21/18 History Ascorbic Acid [Vitamin C] 1,000 mg PO DAILY 05/23/16 04/21/18 History Acetaminophen [Acetaminophen Extra 500 mg PO Q6H PRN 07/04/16 04/21/18 History Strength] Calcium Carbonate/Vitamin D3 1 each PO BID #60 tab.chew 07/07/16 04/21/18 Rx [Calcium 500+D Tablet Chew] aspirin 81 mg chewable tablet 81 mg PO QDAY 08/20/16 04/21/18 History famotidine 20 mg tablet 20 mg PO BID #60 tab 04/21/18 04/21/18 Rx pseudoephedrine ER 120 mg 120 mg PO Q12H #30 tab 04/21/18 04/21/18 Rx tablet,extended release trazodone 50 mg tablet 50 mg PO QHS PRN #60 tab 06/01/18 Rx Ciprofloxacin HCl [Cipro] 500 mg PO BID #14 tab 06/09/18 Rx tramadol 50 mg tablet 25 mg PO QID PRN #60 tab 07/06/18 Rx hydroxychloroquine 200 mg tablet 200 mg PO QDAY #30 tab 07/21/18 Rx hydrocodone 7.5 mg-acetaminophen 1 tab PO BID PRN #60 tab 07/27/18 Rx 325 mg tablet Allergies Allergy/AdvReac Type Severity Reaction Status Date / Time latex AdvReac Intermediate Rash Verified 04/21/18 11:24 Sulfa (Sulfonamide AdvReac Mild Rash Verified 04/21/18 11:24 Antibiotics) Medical - H&P: Exam - Constitutional Vitals: Temp Pulse Resp BP Pulse Ox 97.2 F 94 H 23 H 153/60 93 08/05/18 20:55 08/05/18 20:34 08/05/18 20:34 08/05/18 20:17 08/05/18 20:34 Exam: GENERAL: The patient is a frail old lady, in no apparent distress. Is alert and oriented x3. VITAL SIGNS: Reviewed and as noted elsewhere. HEENT: Head is normocephalic and atraumatic. Extraocular muscles are intact. Pupils are equal, round, and reactive to light. Nares appeared normal. Mouth appears any without lesions. Mucous membranes are dry NECK: Normal to inspection, Supple, No lymphadenopathy or thyromegaly. Kyphosis Spine- Severe scoliosis/ kyphosis LUNGS: Air entry equal on both sides, no wheezing, mild inspiratory crackles at bases. HEART: Regular rate and rhythm normal, S1 and S2 heard, no Gallop, S3 or Rub Noted, No Gross murmur heard. ABDOMEN: Soft, nontender, and nondistended. Positive bowel sounds. No hepatosplenomegaly was noted. EXTREMITIES: No cyanosis, clubbing, rash, lesions or edema. NEUROLOGIC: Cranial nerves II through XII are grossly intact. Motor and Sensory System Grossly Intact PSYCHIATRIC: Normal affect, Normal Mood. Appropriate Behavior. SKIN: No ulceration or wounds noted, No jaundice, No rash noted. Medical - H&P: Reslt - Labs CBC & Chem 7: 08/05/18 20:20 08/05/18 20:20 Labs: Short CBC 08/05/18 Range/Units 20:20 WBC 14.6 H (4.5-11.0) K/mcL Hgb 12.8 (12.0-15.0) g/dL Hct 38.1 (36.0-48.0) % Plt Count 194 (140-440) K/mcL Medical - H&P: A/P - Narrative A/P Narrative: A/P Acute vertebral compression Fracture Community Acquired Pneumonia Osteoporosis Rheumatoid arthritis Acute hypoxic Respiratory failure hypothyroidism HTN/HLD Restless leg syndrome Osteoarthritis Kyphosis/scoliosis Plan Admit to med surg Blood cultures sent, ua sent start on rocephin and zithromax, aggresive pain management for vertebral fracture OT/PT/ST eval Oxygen via nasal canula to keep osat > 90 aggresive pulmonary toilet Gentle hydration DVT hep sq Full code Regular diet. Social History - Social History lives independently: Yes marital status: other: Children-4 - Tobacco smoking status: Never smoker - Alcohol alcohol intake frequency: a few times a month - Substance use substance use type: does not use
[2018-08-05 21:47] LABS: ALT/SGPT 23 U/l (0-40); Albumin 4.1 gm/dL (3.2-5.2); Albumin/Globulin Ratio 1.8 (1.0-2.3); Alkaline Phosphatase 109 U/L (39-117); Blood Urea Nitrogen 16 mg/dl (8-23)
[2018-08-05] MEDS ORDERED: ALBUTEROL SULFATE 2.5 MG/3 ML NEBULIZER NEB PRN (22:06)
[2018-08-05] MEDS ORDERED: HYDROmorphone 2 MG/ML VIAL IV PRN (22:06)
[2018-08-05] MEDS ORDERED: cefTRIAXone 1 GM in DEXTROSE 5% IN WATER 50 ML IV SCH (22:06)
[2018-08-05] MEDS ORDERED: ONDANSETRON 4 MG/2 ML VIAL IV PRN (22:06)
[2018-08-05] MEDS ORDERED: ACETAMINOPHEN 325 MG TABLET PO SCH (22:06)
[2018-08-05] MEDS ORDERED: AZITHROMYCIN 500 MG in DEXTROSE 5% IN WATER 250 ML IV ONE (22:06)
[2018-08-05] MEDS ORDERED: cefTRIAXone 1 GM VIAL ONE (22:16)
[2018-08-05 22:34] LABS: Appearance,Urine CLEAR; Bacteria,Urine 0 /hpf (0); Bilirubin,Urine NEG (NEG); Color,Urine YELLOW; Glucose,Urine (UA) NEGATIVE (NEG); Leukocyte Esterase,Urine NEG /uL (NEG); Mucus,Urine MOD /hpf (0); Protein,Urine 30 mg/dL (NEG); Specific Gravity,Urine 1.021 (1.000-1.035); Urine Blood NEG mg/dL (<0.03); Urine Hyaline Cast 1 /lpf (0-2); Urine RBC 1 /hpf (0-1); Urine Squamous Epithelial Cell 0 /hpf (0-4); Urine WBC 1 /hpf (0-4); Urobilinogen,Urine NEG (NEG)
[2018-08-05] MEDS ORDERED: FAMOTIDINE/PF 20 MG/2 ML VIAL IV ONE (23:19)
[2018-08-05] MEDS: FAMOTIDINE/PF 20 MG/2 ML VIAL IV SCH (23:25)
[2018-08-05] MEDS: 0.9 % SODIUM CHLORIDE 10 ML SYRINGE IV SCH (23:26)
[2018-08-05] MEDS: AZITHROMYCIN 250 MG in DEXTROSE 5% IN WATER 250 ML IV SCH (23:54)
[2018-08-06] MEDS: oxyCODONE HCL 5 MG TABLET PO PRN ×4 (01:41→23:01)
[2018-08-06] MEDS: 0.9 % SODIUM CHLORIDE 10 ML SYRINGE IV SCH ×4 (01:44→20:58)
[2018-08-06] MEDS ORDERED: oxyCODONE HCL 5 MG TABLET PO ONE ×2 (01:46→05:36)
[2018-08-06 06:51] LABS: ALT/SGPT 21 U/l (0-40); Albumin 3.9 gm/dL (3.2-5.2); Albumin/Globulin Ratio 1.8 (1.0-2.3); Alkaline Phosphatase 110 U/L (39-117); Bilirubin,Direct < 0.2 mg/dL (0.0-0.3); Blood Urea Nitrogen 13 mg/dl (8-23); Gamma Glutamyl Transpeptidase 40 U/L (5-36); Uric Acid 4.1 mg/dL (2.5-8.0)
--- NOTE | 2018-08-06 07:59 | Cat Scan Report ---
History: Fell with neck and back injury TECHNIQUE: The neck was imaged from skull base to the upper thoracic spine at 2.5 mm intervals. Sagittal and coronal reformats are created. The radiation exposure was limited using dose reduction technology. FINDINGS: The skull base is normal. There is a retention cyst in the floor the left maxillary sinus. The cervico-occipital junction is normal. A severe kyphotic curvature is present in the upper thoracic spine and there is an exaggerated lordosis of the cervical spine. Bones are severely osteoporotic. There are mild compression deformities involving the inferior endplates of C6, C7 and T1. There is a moderate compression fracture involving the inferior endplate of T2. Severe biconcave compression fractures are seen at T3, T4 and T5. There is no retropulsion of bone into the central canal and no paraspinal hematoma is present. Moderate disc space narrowing is present at C4-5, C5-6 and C6-7. There are small spurs along the posterior margins of the disks at C3-4 and C4-5. Mild spurring of the uncinate processes is present bilaterally at C3-4 and C4-5 and there is mild arthritis in the facet joints in the midcervical spine. This is causing moderate stenosis of the right-sided neural foramen at C4-5. Comparison with the prior neck CT done on 10/12/15 shows the compression fractures from C6 through T2 are chronic and remain stable. Previously there was a moderate compression fracture at T4 and milder compression fractures at T3 and T5. All three of those thoracic vertebral fractures have become significantly worse since 2015. There is a right shoulder prosthesis and severe osteoarthritis in the left shoulder. IMPRESSION: Severe biconcave wedge compression fractures at T3-T4 and T5 resulting in a severe kyphosis. Stable old compression fractures at C6, C7, T1 and T2 Rylee Bland and Dr. Corley were called with the results Interpreted and Authenticated by: Kj Bray 08/06/18
--- NOTE | 2018-08-06 08:07 | Cat Scan Report ---
History: Fell with back injury, abdominal pain and shortness of breath TECHNIQUE: The patient was imaged without oral or intravenous contrast scanning from the thoracic inlet to the symphysis pubis. Sagittal and coronal reformats were created. Radiation exposure was limited using dose reduction technology. CHEST: Severe compression fractures are present at T3-T4 and T5 resulting in a severe kyphosis. Mild compression fracture seen in the superior endplate of L3. The L3 fracture is a chronic stable finding. The thoracic compression fractures have become worse since 2015. No mediastinal hemorrhage is present and there is no evidence of spinal canal stenosis in the thoracic or lumbar region. There is a severe kyphosis in the upper thoracic spine and a moderate scoliosis in the lower thoracic spine. Bone windows of the pelvis show no pelvic or hip fracture. There are bilateral middle hip prosthesis creating artifact in the lower pelvis. The heart is moderately enlarged and there are densely calcified plaques in the coronary arteries. There is also plaque formation in the aorta, which is normal in caliber. There is significant mucous plugging of the left lower lobe bronchi causing partial atelectasis left lower lobe. A small patchy infiltrate is present posteriorly in the right lower lobe lung with linear opacities. This may be a combination of atelectasis and pneumonia. There is no evidence of a lung mass emphysema, pneumothorax or pleural effusion. A moderate size hiatus hernia is present. Abdomen and pelvis: Evaluation the abdominal organs without contrast is limited. The patient is also some AC joint and there is lack of intraperitoneal fat. No abnormality is detected within the liver, spleen, gallbladder, pancreas or adrenals. A 3.4 cm cyst is present in the lower pole of the right kidney. Lateral to the midportion left kidney there is a 2.5 cm cyst. No kidney stone or hydronephrosis are present. No ascites or intra-abdominal hematoma are present. Moderate amount of stool is present in nondilated colon. There are few diverticula in the sigmoid colon. Calcified plaques are present in normal caliber abdominal aorta and iliac arteries. IMPRESSION: Severe compression fractures at T3, T4 and T5 and stable old mild compression fracture at L3. Mucous plugging in the left lower lobe causing mild posterior obstructive atelectasis Mild atelectasis or pneumonia in the right lower lobe No evidence of lacerated abdominal organ Rylee Bland and Dr. Corley were called with the results Interpreted and Authenticated by: Kj Bray 08/06/18
[2018-08-06 08:33] LABS: Basophils # (Auto) 0 K/mcL (0.0-0.3); Basophils % (Auto) 0 % (0.0-2.0); Eosinophils # (Auto) 0 K/mcL (0.0-0.7); Eosinophils % (Auto) 0 % (0.0-7.0); Granulocytes % (Auto) 88.6 % (38.0-78.0); Lymphocytes # (Auto) 0.6 K/mcL (1.5-4.8); Lymphocytes % (Auto) 6.9 % (15.5-49.0); Mean Cell Volume 98.9 fL (80.0-100.0); Mean Corpuscular Hemoglobin 33.6 pg (26.0-34.0); Monocytes # (Auto) 0.4 K/mcL (0.1-0.9); Monocytes % (Auto) 4.5 % (1.0-12.0); Platelet Count 174 K/mcL (140-440); RBC 3.71 M/mcL (4.00-5.20); Red Cell Distribution Width 12.3 % (11.5-14.5)
[2018-08-06] MEDS: FAMOTIDINE/PF 20 MG/2 ML VIAL IV SCH ×2 (10:16→20:51)
[2018-08-06] MEDS: cefTRIAXone 1 GM VIAL IV SCH (10:16)
[2018-08-06] MEDS: AZITHROMYCIN 250 MG in DEXTROSE 5% IN WATER 250 ML IV SCH (10:16)
[2018-08-06] MEDS: HEPARIN 5,000 UNIT/ML VIAL SQ SCH ×2 (10:16→20:50)
[2018-08-06] MEDS: ACETAMINOPHEN 500 MG TABLET PO SCH ×3 (10:16→20:51)
--- NOTE | 2018-08-06 12:33 | Internal Med Progress Note ---
Medical - PN: Subj Patient information: Note initiated : 08/06/18 at 12:31 pm Service Date, if different from initiated Date: [] Patient: Haley Puga 82 y/o F admitted on 08/05/18 for Fall, SOB, Back Pain /Vertebral Compression Fx. Chief Complaint: [] Interval history: Ms. Puga is a 82 year old F who lives with her is quite frail presents to the emergency room after a fall. The patient was putting in some books on the [employer] this afternoon with her when she turned around and fell down. She denies injuring her head. She notes she just fell down and her back started hurting. She tried to rest for some time but the pain progressively quite severe. She eventually was unable to bear the pain and therefore called EMS to come to the hospital. The patient and her are recovering from a cold symptom, for the last week or so patient has been having cough. Patient denies any fever or chills. She denies any chest pain dizziness palpitations changes in vision before she fell down. Her helped her up. In the emergency room the patient has a low-grade temperature of 100 F, heart rate 84, blood pressure stable saturating 94% on 2 L of oxygen. Labs show leukocytosis, chemistry was pending. The patient had a CT chest abdomen and pelvis and a CT spine done. Official report will be dictated tomorrow I got the preliminary read from the radiologist who notes that the patient has severe compression fractures new in T3 and T5, new on old on T4. The patient also has old fractures and C7 T1-T2 and L3. There is no hematoma and no impingement on the cord. The patient has no other intra-abdominal pathology. The patient has bilateral atelectasis and possible pneumonia on the right side. Significant mucus plugging bilaterally. Given the patient has leukocytosis low-grade temperature possible pneumonia, increased oxygen requirements as well as new vertebral fractures which would make it difficult for the patient to be discharged safely back home patient is being admitted to the hospital for further management. ER contacted Dr Abreu a spine surgeon reviewed the CT scan, and noted that the patient does not warrant operative intervention and advised medical management. He would see the patient in the clinic as outpatient. The patient wishes to be full code for now, her will make a decision about withdrawal of support incase she were to go in a vegetative state 08/06 Patient seen and examined, no acute overnight events, still requires oxygen. The patient blood work reviewed leukocytosis improved. The patient's pain is much better controlled. She feels a bit loopy after the use of narcotic pain medications otherwise was able to get out of bed and work with physical therapy. The patient would like to be discharged home if possible. Pertinent ROS: Denies headache, dizziness Denies chest pain, palpitations Denies cough or shortness of breath Denies abdominal pain, nausea or vomiting. - Constitutional Vitals: Vital Signs Temp Pulse Resp BP Pulse Ox 98.5 F 94 H 14 135/64 94 08/06/18 11:20 08/06/18 04:00 08/06/18 11:20 08/06/18 11:20 08/06/18 11:20 Period Temp Pulse Resp BP Sys/Jacobson Pulse Ox Last 24 Hr 97.2 F-100.0 F 81-96 14-32 126-174/60-77 88-98 Intake and Output 08/05/18 08/06/18 08/06/18 21:59 05:59 13:59 Output Total 300 / 300 Balance -300 / -300 Weight 90 lb Intake & Output: Intake & Output 08/05/18 08/06/18 08/06/18 21:59 05:59 13:59 Output Total 300 / 300 Balance -300 / -300 Weight 90 lb Output: Urine Catheter Amount 300 / 300 Other: Urine Appearance Uretheral (Gonzales) Clear Clear Urine Color Uretheral (Gonzales) Pale Pale Exam: Constitutional; Afebrile, cooperative, alert, not in distress. Respiratory system: Air Entry equal on both sides, No crackles or wheezing, no rhonchi. CVS- Rate rhythm regular, S1,S2 heard, no gallop, no rub. Abdomen- Soft nontender abdomen, no organomegaly, no tenderness, no guarding or rigidity, SQE- AOOx3, moving all extremities, no gross focal deficit noted. Medical - PN: Obj Da - Labs CBC & Chem 7: 08/06/18 06:40 08/06/18 05:00 Labs: Abnormal Lab Results 08/06/18 08/06/18 08/05/18 06:40 05:00 21:45 WBC RBC 3.71 L Gran % 88.6 H Lymph % (Auto) 6.9 L Gran # 8.3 H Lymph # (Auto) 0.6 L Creatinine 0.5 L Glucose 118 H GGT 40 H Lactate Dehydrogenase 304 H Urine Protein 30 A Urine Ketones 20 A 08/05/18 08/05/18 20:20 20:20 WBC 14.6 H RBC 3.84 L Gran % 89.2 H Lymph % (Auto) 7.3 L Gran # 13.0 H Lymph # (Auto) 1.1 L Creatinine Glucose 145 H GGT Lactate Dehydrogenase Urine Protein Urine Ketones Meds: Medications Acetaminophen (Tylenol) 1,000 mg PO TID [facility] Last Admin: 08/06/18 10:16 Dose: 1,000 mg Albuterol Sulfate (Ventolin) 2.5 mg NEB Q2HP PRN PRN Reason: Shortness Of Breath Ceftriaxone Sodium (Rocephin) 1 gm IV Q24H [facility] Last Admin: 08/06/18 10:16 Dose: 1 gm Famotidine (Pepcid) 20 mg IV Q12 [facility] Last Admin: 08/06/18 10:16 Dose: 20 mg Heparin Sodium (Porcine) (Heparin) 5,000 unit SQ Q12 [facility] Last Admin: 08/06/18 10:16 Dose: 5,000 unit Hydromorphone HCl (Dilaudid) 0.5 mg IV Q2HP PRN PRN Reason: PAIN LEVEL > 6 Azithromycin 250 mg/ Dextrose 250 mls @ 250 mls/hr IV Q24H [facility] Stop: 08/08/18 23:05 Last Admin: 08/06/18 10:16 Dose: 250 mls/hr Ondansetron HCl (Zofran) 4 mg IV Q6HP PRN PRN Reason: Nausea And Vomiting Oxycodone HCl (Roxicodone) 5 mg PO Q4HP PRN PRN Reason: PAIN LEVEL 3-6 Last Admin: 08/06/18 05:32 Dose: 5 mg Sodium Chloride (Saline Flush) 10 ml IV Q8 [facility] Last Admin: 08/06/18 05:33 Dose: 10 ml Medical - PN: A/P - Time Spent With Patient Total time spent is greater than 50% in coordination of care (as documented) at patient's floor/unit and/or counseling patient: - Narrative A/P Narrative: A/P Acute vertebral compression Fracture Community Acquired Pneumonia Osteoporosis Rheumatoid arthritis Acute hypoxic Respiratory failure hypothyroidism HTN/HLD Restless leg syndrome Osteoarthritis Kyphosis/scoliosis Plan Blood cultures sent, ua not suggestive of UTI continue on rocephin and zithromax, aggressive pain management for vertebral fracture OT/PT/ST eval Oxygen via nasal canula to keep osat > 90 aggresive pulmonary toilet Gentle hydration If able to ambulate with oral pain meds, will d/c home in AM DVT hep sq Full code Regular diet. Medical - PN: Qual - VTE Deep Vein Thrombosis/Pulmonary Embolism Present on Admission: No
[2018-08-07] MEDS: oxyCODONE HCL 5 MG TABLET PO PRN ×2 (03:18→07:31)
[2018-08-07 06:38] LABS: Basophils # (Auto) 0 K/mcL (0.0-0.3); Basophils % (Auto) 0.3 % (0.0-2.0); Eosinophils # (Auto) 0.1 K/mcL (0.0-0.7); Eosinophils % (Auto) 1.2 % (0.0-7.0); Lymphocytes # (Auto) 0.9 K/mcL (1.5-4.8); Lymphocytes % (Auto) 15.8 % (15.5-49.0); Mean Cell Volume 99.2 fL (80.0-100.0); Mean Corpuscular HGB Conc 34.1 g/dL (31.0-36.0); Mean Corpuscular Hemoglobin 33.8 pg (26.0-34.0); Monocytes # (Auto) 0.4 K/mcL (0.1-0.9); Monocytes % (Auto) 7.7 % (1.0-12.0); Platelet Count 173 K/mcL (140-440); RBC 3.72 M/mcL (4.00-5.20); Red Cell Distribution Width 12.5 % (11.5-14.5)
[2018-08-07 07:18] LABS: ALT/SGPT 40 U/l (0-40); Albumin 3.6 gm/dL (3.2-5.2); Albumin/Globulin Ratio 1.7 (1.0-2.3); Alkaline Phosphatase 107 U/L (39-117); Bilirubin,Direct < 0.2 mg/dL (0.0-0.3); Blood Urea Nitrogen 10 mg/dl (8-23); Gamma Glutamyl Transpeptidase 57 U/L (5-36); Uric Acid 3.6 mg/dL (2.5-8.0)
[2018-08-07] MEDS: ACETAMINOPHEN 500 MG TABLET PO SCH (10:04)
[2018-08-07] MEDS: HEPARIN 5,000 UNIT/ML VIAL SQ SCH (10:05)
[2018-08-07] MEDS: FAMOTIDINE/PF 20 MG/2 ML VIAL IV SCH (10:05)
[2018-08-07] MEDS: 0.9 % SODIUM CHLORIDE 10 ML SYRINGE IV SCH (10:11)
--- NOTE | 2018-08-07 10:45 | Discharge Summary ---
Medical - DS: Prov Patient information: Note initiated : 08/07/18 at 10:39 am Service Date, if different from initiated Date: [] Patient: Haley Puga 82 y/o F admitted on 08/05/18 for Fall, SOB, Back Pain /Vertebral Compression Fx. Chief Complaint: [] Date of admission: 08/05/18 21:51 Discharge date: 08/07/18 Primary care physician: Celina Dent DO Admitting clinician: Baldev Corley Consults: 08/05/18 Consult to Physician [CONS] Stat Comment: Consulting Provider: Baldev Corley Reason For Exam: Physician to Consult Consult to Physician [CONS] Stat Comment: Consulting Provider: Antonio Vilchis Reason For Exam: Physician to Consult Discharging clinician: Baldev Corley Medical - DS: Meds - Discharge Medications Prescriptions: Celecoxib 200 mg PO DAILY #30 cap Levofloxacin 500 mg PO DAILY #3 tab Active and Home Medications: Home Medications calcium carbonate 600 mg (1,500 mg)-vitamin D3 400 unit tablet 1 tab PO QDAY [History Confirmed 08/05/18 Last Taken 08/05/18 07:30] cholecalciferol (vitamin D3) 5,000 unit tablet 5,000 unit PO DAILY tab [History Confirmed 08/05/18 Last Taken 08/05/18 07:30] cranberry fruit concentrate 1 tab PO BID 05/08/16 [History Confirmed 08/05/18 Last Taken 08/05/18 07:30] fluticasone 50 mcg/actuation nasal spray,suspension 2 spray INTRANASAL DAILYP PRN 05/08/16 [History Confirmed 08/05/18 Last Taken 08/05/18 07:30] furosemide 40 mg tablet 40 mg PO DAILYP PRN 05/08/16 [History Confirmed Last Taken 07/05/18 23:00] garlic 1 tab PO QDAY 05/08/16 [History Confirmed 08/05/18 Last Taken 08/05/18 07 :30] mometasone 0.1 % topical cream 1 applic TOPICAL BIDP PRN g 05/08/16 [History Confirmed 08/05/18 Last Taken 08/05/17 07:30] nystatin 100,000 unit/gram topical powder 1 applic TOPICAL BIDP PRN 05/08/16 [ History Confirmed 08/05/18 Last Taken 08/05/17 07:30] Ascorbic Acid [Vitamin C] 1,000 mg PO DAILY 05/23/16 [History Confirmed Last Taken 08/05/18 07:30] Acetaminophen [Acetaminophen Extra Strength] 500 mg PO Q6H PRN 07/04/16 [ History Confirmed 08/05/18 Last Taken 06/04/18 22:00] aspirin 81 mg chewable tablet 81 mg PO QDAY 08/20/16 [History Confirmed Last Taken 08/05/18 07:30] famotidine 20 mg tablet 20 mg PO BID #60 tab 04/21/18 [Rx Confirmed 08/05/18 Last Taken 08/05/18 07:30] trazodone 50 mg tablet 50 mg PO QHS PRN #60 tab 06/01/18 [Rx Confirmed 08/05/18 Last Taken 08/04/18 23:00] tramadol 50 mg tablet 25 mg PO QID PRN #60 tab 07/06/18 [Rx Confirmed 08/05/18 Last Taken 08/04/18 18:00] hydroxychloroquine 200 mg tablet 200 mg PO QDAY #30 tab 07/21/18 [Rx Confirmed 08/05/18 Last Taken 08/04/18 23:00] hydrocodone 7.5 mg-acetaminophen 325 mg tablet 1 tab PO BID PRN #60 tab [Rx Confirmed 08/05/18 Last Taken 08/04/18 23:00] Medical - DS: Hosp Hospital course: Ms. Puga is a 82 year old F who lives with her is quite frail presented to the emergency room after a fall. The patient was putting in some books on the [employer] this afternoon with her when she turned around and fell down. She denies injuring her head. She notes she just fell down and her back started hurting. She tried to rest for some time but the pain progressively quite severe. She eventually was unable to bear the pain and therefore called EMS to come to the hospital. The patient and her are recovering from a cold symptom, for the last week or so patient has been having cough. Patient denies any fever or chills. She denies any chest pain dizziness palpitations changes in vision before she fell down. Her helped her up. In the emergency room the patient has a low-grade temperature of 100 F, heart rate 84, blood pressure stable saturating 94% on 2 L of oxygen. Labs show leukocytosis, chemistry was pending. The patient had a CT chest abdomen and pelvis and a CT spine done. Official report will be dictated tomorrow I got the preliminary read from the radiologist who notes that the patient has severe compression fractures new in T3 and T5, new on old on T4. The patient also has old fractures and C7 T1-T2 and L3. There is no hematoma and no impingement on the cord. The patient has no other intra-abdominal pathology. The patient has bilateral atelectasis and possible pneumonia on the right side. Significant mucus plugging bilaterally. Given the patient has leukocytosis low-grade temperature possible pneumonia, increased oxygen requirements as well as new vertebral fractures which would make it difficult for the patient to be discharged safely back home patient is being admitted to the hospital for further management. ER contacted Dr Abreu a spine surgeon reviewed the CT scan, and noted that the patient does not warrant operative intervention and advised medical management. He would see the patient in the clinic as outpatient. The patient wishes to be full code for now, her will make a decision about withdrawal of support incase she were to go in a vegetative state Acute vertebral Fractures- Non surgical management as per Dr Abreu, pain control. Patient was treated with scheduled tylenol and oxycodone with good response, pain is much better controlled on day 3, she feels like back to near baseline and wishes to go home. She has precriptins for hydrocodone. I am going to have the patient take tylenol 500mg three times a day, add celecoxib to her regime and then take her hydrocodone as needed for break through pain. Pneumonia- wbc back to normal, cultures neg, pt off oxygen (need 2 L on presentatin) she will complete a 5 day course with antibiotics, Will discharge on levofloxacin 500mg daily x 3 more days. Patient will continue all her home medications as previously prescribed. No changes made. Discharge diagnosis: thoracic vertebral Fracture, Pneumonia - Time Spent with Patient Total time spent providing and/or coordinating discharge services: Less than 30 minutes Medical - DS: Exam - Constitutional Vitals: Vital Signs Temp Pulse Resp BP Pulse Ox 08/07/18 07:13 98.8 F 14 149/78 92 08/07/18 04:00 97.4 F 90 20 160/68 91 08/07/18 01:14 87 90 08/07/18 00:20 90 08/07/18 00:00 97.6 F 82 16 136/65 96 08/06/18 23:12 93 08/06/18 22:00 84 90 08/06/18 21:00 90 08/06/18 20:00 97.4 F 88 18 125/65 94 08/06/18 15:27 98.4 F 14 122/67 93 08/06/18 14:36 98.5 F 08/06/18 11:20 98.5 F 14 135/64 94 Intake and Output 08/06/18 08/07/18 08/07/18 21:59 05:59 13:59 Intake Total 940 / 940 Output Total 800 / 800 200 / 200 Balance 940 / 940 -800 / -800 -200 / -200 Intake: Oral 940 / 940 Output: Void Amount 800 / 800 200 / 200 Other: Urine Appearance Clear Clear Urine Color Pale Light Kimmy Weight 92 lb Additional comments: Constitutional; Afebrile, cooperative, alert, not in distress. Respiratory system: Air Entry equal on both sides, No crackles or wheezing, no rhonchi. CVS- Rate rhythm regular, S1,S2 heard, no gallop, no rub. Abdomen- Soft nontender abdomen, no organomegaly, no tenderness, no guarding or rigidity, [employer]- AOOx3, moving all extremities, no gross focal deficit noted. Medical - DS: Data Labs on day of discharge: Labs from last 24 hours 08/07/18 08/07/18 04:41 04:41 WBC 5.4 RBC 3.72 L Hgb 12.6 Hct 36.9 MCV 99.2 MCH 33.8 MCHC 34.1 RDW 12.5 Plt Count 173 MPV 9.6 Gran % 75.0 Lymph % (Auto) 15.8 [place] % (Auto) 7.7 Eos % (Auto) 1.2 Baso % (Auto) 0.3 Gran # 4.1 Lymph # (Auto) 0.9 L [place] # (Auto) 0.4 Eos # (Auto) 0.1 Baso # (Auto) 0 Sodium 138 Potassium 4.0 Chloride 101 Carbon Dioxide 26 Anion Gap 11.0 BUN 10 Creatinine 0.6 GFR Calculation 84 Glucose 105 Uric Acid 3.6 Calcium 8.9 Phosphorus 2.6 L Magnesium 1.8 Total Bilirubin 0.3 Direct Bilirubin < 0.2 GGT 57 H AST 53 H ALT 40 Alkaline Phosphatase 107 Lactate Dehydrogenase 291 H Total Protein 5.7 L Albumin 3.6 Globulin 2.1 L Albumin/Globulin Ratio 1.7 Triglycerides 97 Preliminary micro results at discharge 08/05/18 21:35 Blood Culture - Preliminary Blood 08/05/18 21:30 Blood Culture - Preliminary Blood Medical - DS: A/P - Patient/Caregiver Discharge Instructions Activity: increase activity as tolerated Diet: Regular Diet Additional Instructions: Please take tylenol 500mg three times a day Please take celecoxib 200mg once daily, with food Please use your hydrocodone as prescribed by your regular doctor for break throuh pain. Keep your self well hydrated You had a mild pneumonia, and I have prescribed some antibiotics for same, Please take levofloxacin for another 3 days. Please follow up with PCP in [address] Abreu office for a follow up on Vertebral fractures/ Need for brace If you pain is not controlled with oral medications, Please talk to your doctor for a referral to the pain clinic. Go to the ER for shortness of breath, chest pain, fever or any other acute concerns I have not made any changes to your chronic home medications, please take them as precribed by your regular doctor. - Follow up Plan Follow up with: Celina Dent DO [Primary Care Provider] - Antonio Vilchis [Physician] - Disposition: Home, Self-Care Prognosis: Fair Rehab Potential: Fair I certify that the patient requires SNF services: No Overall status at discharge: patient is progressing back to baseline Medical - DS: Qual - VTE Deep Vein Thrombosis/Pulmonary Embolism Present on Admission: No
[2018-08-07] MEDS: cefTRIAXone 1 GM VIAL IV SCH (11:00)
[2018-08-07] MEDS: AZITHROMYCIN 250 MG in DEXTROSE 5% IN WATER 250 ML IV SCH (11:09)
== END 2018-08-07 14:25 | disposition home or self-care (01) | DRG 551 ==
LOC: ED 18:49 → MEDSUR 21:51
PROVIDERS: ADMIT Internal Medicine; ATTEND Internal Medicine